=== PATIENT | female | born 1940 | race American Indian/Alaskan Native ===

== ENCOUNTER 2017-11-05 23:33 | Emergency (ER) | payer MEDICARE ==
[2017-11-06] MEDS ORDERED: NORMODYNE IV ONE (01:10)
--- NOTE | 2017-11-06 01:15 | Emergency Department Report ---
ED General Adult HPI - General Chief complaint: High BP Stated complaint: HIGH BLOOD PRESSURE Time Seen by Provider: 11/06/17 01:09 Source: patient Mode of arrival: Ambulatory Limitations: No Limitations - History of Present Illness Initial comments: 77-year-old woman presents with complaint of elevated blood pressure, with long- standing history of hypertension, with generally good control with blood pressure typically in the 130/80 range. Patient reports that she ate at an [place] restaurant earlier in the evening, and believes that there was a very salty and spicy dish that she ate that caused her blood pressure to go up, and that she found that it was over 200 mm systolic after she got home earlier in the evening. 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 She has no active complaints, but did report that earlier after the meal she felt lightheaded, woozy in the head, and thought this was related to her blood pressure, which she then took, and found to be quite high, which was concerning to her. She has no focal neurologic symptoms, no weakness, no unsteadiness, no headache, no chest pain, no shortness of breath, no nausea or vomiting, no back pain. She has not had any falls or trauma, and she has no other systemic complaints. Severity scale (0 -10): 0 - Related Data Previous Rx's Medication Instructions Recorded Last Taken Type Promethazine /Codeine 5 ml PO Q6H PRN #90 ml 05/03/13 Unknown Rx [Phenergan/Codeine 6.25-10 mg/5 ml] predniSONE [Deltasone] 50 mg PO QDAY #4 tab 05/03/13 Unknown Rx Levofloxacin [Levaquin] 750 mg PO QDAY #14 tablet 10/17/13 Unknown Rx Sulfamethoxazole/Trimethoprim 1 each PO BID #28 tablet 10/17/13 Unknown Rx [Bactrim Ds] Ibuprofen [Motrin 600 MG tab] 600 mg PO Q8H PRN #30 tablet 05/16/15 Unknown Rx Tobramycin 0.3% [Tobrex] 1 drop OP Q4HR #1 bottle 05/16/15 Unknown Rx Allergies Allergy/AdvReac Type Severity Reaction Status Date / Time No Known Allergies Allergy Verified 11/05/17 23:49 ED Review of Systems ROS: Stated complaint: HIGH BLOOD PRESSURE Other details as noted in HPI Constitutional: denies: chills, fever Eyes: vision change (blurryblurry). denies: eye pain ENT: denies: throat pain Respiratory: denies: cough, shortness of breath, SOB with exertion, wheezing Cardiovascular: denies: chest pain, palpitations, edema, syncope Endocrine: no symptoms reported Gastrointestinal: denies: abdominal pain, nausea, diarrhea Genitourinary: denies: urgency, dysuria, discharge Musculoskeletal: denies: back pain, joint swelling, arthralgia Skin: denies: rash, lesions Neurological: denies: headache, weakness, paresthesias Psychiatric: denies: anxiety, depression Hematological/Lymphatic: denies: easy bleeding, easy bruising ED Past Medical Hx - Past Medical History Hx Hypertension: Yes Hx Arthritis: Yes - Surgical History Past Surgical History?: Yes Hx Cholecystectomy: Yes (2002) Additional Surgical History: hysterectomy - Social History Smoking Status: Never Smoker Substance Use Type: None - Medications Home Medications: Home Medications Medication Instructions Recorded Confirmed Last Taken Type Promethazine /Codeine 5 ml PO Q6H PRN #90 ml 05/03/13 Unknown Rx [Phenergan/Codeine 6.25-10 mg/5 ml] predniSONE [Deltasone] 50 mg PO QDAY #4 tab 05/03/13 Unknown Rx Levofloxacin [Levaquin] 750 mg PO QDAY #14 tablet 10/17/13 Unknown Rx Sulfamethoxazole/Trimethoprim 1 each PO BID #28 tablet 10/17/13 Unknown Rx [Bactrim Ds] Ibuprofen [Motrin 600 MG tab] 600 mg PO Q8H PRN #30 tablet 05/16/15 Unknown Rx Tobramycin 0.3% [Tobrex] 1 drop OP Q4HR #1 bottle 05/16/15 Unknown Rx ED Physical Exam - General Limitations: No Limitations General appearance: alert, in no apparent distress - Eye Eye exam: Present: normal appearance, PERRL, EOMI - ENT ENT exam: Present: normal exam, mucous membranes moist - Neck Neck exam: Present: normal inspection, full ROM. Absent: tenderness - Respiratory Respiratory exam: Present: normal lung sounds bilaterally. Absent: chest wall tenderness - Cardiovascular Cardiovascular Exam: Present: regular rate - GI/Abdominal GI/Abdominal exam: Present: soft. Absent: tenderness, guarding, rebound - Rectal Rectal exam: Present: deferred - Extremities Exam Extremities exam: Present: normal inspection, full ROM. Absent: pedal edema - Back Exam Back exam: Absent: CVA tenderness (R), CVA tenderness (L) - Neurological Exam Neurological exam: Present: alert, oriented X3, CN II-XII intact. Absent: motor sensory deficit - Psychiatric Psychiatric exam: Present: normal affect, normal mood - Skin Skin exam: Present: warm, dry, intact ED Course Vital Signs 11/05/17 11/05/17 11/06/17 23:31 23:49 00:08 Temperature 36.6 C 36.6 C Pulse Rate 61 63 Respiratory 18 18 Rate Blood Pressure 221/103 221/103 Blood Pressure [Right] O2 Sat by Pulse 96 98 98 Oximetry 11/06/17 11/06/17 11/06/17 00:16 01:00 01:15 Temperature 36.2 C L Pulse Rate 66 Respiratory 16 Rate Blood Pressure 215/124 208/108 Blood Pressure 225/96 [Right] O2 Sat by Pulse 97 99 96 Oximetry 11/06/17 01:46 Temperature Pulse Rate 64 Respiratory Rate Blood Pressure 179/84 Blood Pressure [Right] O2 Sat by Pulse Oximetry - Reevaluation(s) Reevaluation #1: 11/06/17 01:32 Blood pressure on recheck is 206/103, patient is asymptomatic. Reevaluation #2: 11/06/17 01:54 BP 178/89 on recheck, patient remains asymptomatic, was feeling better seeing blood pressure decreased. ED Medical Decision Making - Lab Data Result diagrams: 11/06/17 01:18 11/06/17 01:18 - Medical Decision Making Patient has no elevated blood pressure, particularly given that under good control is normally 130/80. This is likely due to dietary indiscretion, patient reports that she is so sensitive. However, even after reassuring patient that a single blood pressure elevation by itself is not a serious concern, but that long-term stable blood pressure control is the primary goal of antihypertensive therapy, patient still is uncomfortable unless she can get an immediate treatment and some acute lowering of blood pressure. We have treated her with a single dose of hydralazine as well as a single dose of furosemide, which should give her fairly gentle diuresis, as well as blood pressure lowering, and combined with rest tonight, should bring her back towards a more normal range in the morning. She should have follow-up with her physician if her blood pressure remains elevated. Critical Care Time: No Critical care attestation.: If time is entered above; I have spent that time in minutes in the direct care of this critically ill patient, excluding procedure time. ED Disposition Clinical Impression: Asymptomatic hypertensive urgency Disposition: DC-01 TO HOME OR SELFCARE Is pt being admited?: No Does the pt Need Aspirin: No Condition: Stable Instructions: Chronic Hypertension (ED) Additional Instructions: We've given you medication in the emergency department to lower your blood pressure tonight. Rest tonight as normal, and resume your regular blood pressure medicine regimen as before in the morning. Have recheck with your doctor in the coming week if you blood pressure remains difficult to control despite taking your regular medications. Referrals: RORY WHEELER MD [Primary Care Provider] - 3-5 Days Time of Disposition: 01:54
[2017-11-06 01:27] LABS: Hematocrit 42.7 % (30.3-42.9); Hemoglobin 14.1 gm/dl (10.1-14.3); Mean Corpuscular HGB Conc 33 % (30-34); Mean Corpuscular Hemoglobin 26 pg (28-32); Mean Corpuscular Volume 79 fl (79-97); Platelet Count 172 K/mm3 (140-440); Red Cell Distribution Width 15.8 % (13.2-15.2)
[2017-11-06] MEDS ORDERED: APRESOLINE IV ONE (01:31)
[2017-11-06] MEDS ORDERED: LASIX ONE (01:33)
[2017-11-06] MEDS ORDERED: LASIX IV ONE (01:35)
[2017-11-06 01:43] LABS: BUN/Creatinine Ratio 19; Blood Urea Nitrogen 13 mg/dL (7-17); Calcium 9.7 mg/dL (8.4-10.2); Hemolysis Index 6
[2017-11-06 02:07] VITALS: BP 161/77
== END 2017-11-06 02:07 | disposition home or self-care (01) ==
LOC: ED 23:33
DX: I10 Essential (primary) hypertension (principal); Z90.49 Acquired absence of other specified parts of digestive tract; Z90.710 Acquired absence of both cervix and uterus
CPT/HCPCS: 36415; 80048; 85027; 96374; 99283; J0360; J1940

== ENCOUNTER 2018-05-26 00:24 | Emergency (ER) | payer MEDICARE ==
--- NOTE | 2018-05-26 02:55 | Emergency Department Report ---
ED General Adult HPI - General Chief complaint: High BP Stated complaint: HYPERTENSION Time Seen by Provider: 05/26/18 01:53 Source: patient, old records reviewed Mode of arrival: Ambulatory Limitations: No Limitations - History of Present Illness Initial comments: 78-year-old female past medical history of hypertension and arthritis presents to the hospital complaining of elevated blood pressure. Her BP at home is 235/110. Patient reports that she is out of her clonidine just today and she ran out of her clonidine today. She typically takes clonidine 0.3 mg 3 times a day. Patient is no longer on lisinopril but took a dose to help with her blood pressure. She is also on Lasix, potassium chloride, amlodipine, and aspirin daily. Patient states she had some mild neck pain and she was rushing and a little anxious and had a little chest pain. All symptoms have resolved at this time she is asymptomatic and only requesting a refill in her medication. - Related Data Previous Rx's Medication Instructions Recorded Last Taken Type Promethazine /Codeine 5 ml PO Q6H PRN #90 ml 05/03/13 Unknown Rx [Phenergan/Codeine 6.25-10 mg/5 ml] predniSONE [Deltasone] 50 mg PO QDAY #4 tab 05/03/13 Unknown Rx Sulfamethoxazole/Trimethoprim 1 each PO BID #28 tablet 10/17/13 Unknown Rx [Bactrim Ds] levoFLOXacin [Levaquin] 750 mg PO QDAY #14 tablet 10/17/13 Unknown Rx Ibuprofen [Motrin 600 MG tab] 600 mg PO Q8H PRN #30 tablet 05/16/15 Unknown Rx Tobramycin 0.3% [Tobrex] 1 drop OP Q4HR #1 bottle 05/16/15 Unknown Rx Clonidine HCl [Catapres] 0.3 mg PO TID #90 tablet 05/26/18 Unknown Rx Allergies Allergy/AdvReac Type Severity Reaction Status Date / Time No Known Allergies Allergy Verified 11/05/17 23:49 ED Review of Systems ROS: Stated complaint: HYPERTENSION Other details as noted in HPI Comment: All other systems reviewed and negative ED Past Medical Hx - Past Medical History Previous Medical History?: Yes Hx Hypertension: Yes Hx Arthritis: Yes - Surgical History Past Surgical History?: Yes Hx Cholecystectomy: Yes (2002) Additional Surgical History: hysterectomy - Social History Smoking Status: Never Smoker Substance Use Type: None - Medications Home Medications: Home Medications Medication Instructions Recorded Confirmed Last Taken Type Promethazine /Codeine 5 ml PO Q6H PRN #90 ml 05/03/13 Unknown Rx [Phenergan/Codeine 6.25-10 mg/5 ml] predniSONE [Deltasone] 50 mg PO QDAY #4 tab 05/03/13 Unknown Rx Sulfamethoxazole/Trimethoprim 1 each PO BID #28 tablet 10/17/13 Unknown Rx [Bactrim Ds] levoFLOXacin [Levaquin] 750 mg PO QDAY #14 tablet 10/17/13 Unknown Rx Ibuprofen [Motrin 600 MG tab] 600 mg PO Q8H PRN #30 tablet 05/16/15 Unknown Rx Tobramycin 0.3% [Tobrex] 1 drop OP Q4HR #1 bottle 05/16/15 Unknown Rx Clonidine HCl [Catapres] 0.3 mg PO TID #90 tablet 05/26/18 Unknown Rx ED Physical Exam - General Limitations: No Limitations - Other Other exam information: General: No limitations, patient is alert in no acute distress Head exam: Atraumatic, normocephalic Eyes exam: Normal appearance ENT: Moist mucous membrane Neck exam: Normal inspection, full range of motion, no meningismus nontender Respiratory exam: Clear to auscultation bilateral, no wheezes, rales, crackles Cardiovascular: Normal rate and rhythm, normal heart sounds Abdomen: Soft, nondistended, and nontender, with normal bowel sounds, no rebound, or guarding Extremity: Full range of motion normal inspection no deformity, no edema Back: Normal Inspection, full range of motion, no tenderness Neurologic: Alert, oriented x3, cranial nerves intact, no motor or sensory deficit Psychiatric: normal affect, normal mood Skin: Warm, dry, intact ED Course Vital Signs 05/26/18 05/26/18 00:46 01:55 Temperature 97.7 F 97.9 F Pulse Rate 66 70 Respiratory 20 18 Rate Blood Pressure 154/74 Blood Pressure 172/77 [Left] O2 Sat by Pulse 96 98 Oximetry ED Medical Decision Making - EKG Data -: EKG Interpreted by Mi EKG shows normal: sinus rhythm, axis (qrs -22), QRS complexes (qrsd 93), ST-T waves (no stemi) Rate: normal (66) - EKG Data When compared to previous EKG there are: previous EKG unavailable - Medical Decision Making The patient complained of chest pain prior to arrival. EKG does not show ST elevation MT. BP also improved upon arrival compared to home value. She is asymptomatic. Patient declines any additional workup including lab work because she just wants a prescription and to be discharged home. - Differential Diagnosis hypertensive emergency, hypertensive urgency, noncompliance Critical Care Time: No Critical care attestation.: If time is entered above; I have spent that time in minutes in the direct care of this critically ill patient, excluding procedure time. ED Disposition Clinical Impression: Uncontrolled hypertension, Noncompliance with medication regimen Disposition: TO HOME OR SELFCARE Is pt being admited?: No Does the pt Need Aspirin: No Condition: Stable Instructions: Hypertension (ED) Additional Instructions: Take the medication as prescribed. Follow up with your doctor. Return if symptoms worsen as indicated by your discharge instructions Prescriptions: Clonidine HCl [Catapres] 0.3 mg PO TID #90 tablet Referrals: your, pmd [Other] - 3-5 Days Time of Disposition: 02:54
[2018-05-26 03:08] VITALS: BP 151/70
== END 2018-05-26 03:09 | disposition home or self-care (01) ==
LOC: ED 00:24
DX: I10 Essential (primary) hypertension (principal); M54.2 Cervicalgia; Z91.14 Patient's other noncompliance with medication regimen; M19.90 Unspecified osteoarthritis, unspecified site; Z90.49 Acquired absence of other specified parts of digestive tract; Z90.710 Acquired absence of both cervix and uterus
CPT/HCPCS: 93005; 93010; 99282

== ENCOUNTER 2018-12-26 23:59 | Emergency (ER) | payer MEDICARE ==
[2018-12-27] MEDS ORDERED: APRESOLINE PO ONE (00:54)
[2018-12-27] MEDS ORDERED: VASOTEC IV ONE (01:11)
[2018-12-27 01:29] LABS: Basophils # (Auto) 0.1 K/mm3 (0.0-0.1); Basophils % (Auto) 0.8 % (0.0-1.8); Eosinophils # (Auto) 0.1 K/mm3 (0.0-0.4); Eosinophils % (Auto) 1.8 % (0.0-4.3); Hemoglobin 14.7 gm/dl (10.1-14.3); Lymphocytes # (Auto) 2.4 K/mm3 (1.2-5.4); Lymphocytes % (Auto) 29.7 % (13.4-35.0); Mean Corpuscular HGB Conc 33 % (30-34); Mean Corpuscular Volume 81 fl (79-97); Monocytes # (Auto) 0.5 K/mm3 (0.0-0.8); Monocytes % (Auto) 6.5 % (0.0-7.3); Platelet Count 156 K/mm3 (140-440); Red Blood Count 5.42 M/mm3 (3.65-5.03); Red Cell Distribution Width 15.8 % (13.2-15.2)
[2018-12-27 01:52] LABS: BUN/Creatinine Ratio 21; Blood Urea Nitrogen 15 mg/dL (7-17); Calcium 10.3 mg/dL (8.4-10.2); Hemolysis Index 138
--- NOTE | 2018-12-27 01:55 | Cat Scan Report ---
CT head/brain wo con INDICATION / CLINICAL INFORMATION: High blood pressure with headache and dizziness. TECHNIQUE: All CT scans at this location are performed using CT dose reduction for ALARA by means of automated e xposure control. COMPARISON: None available. FINDINGS: There is mild generalized cerebral atrophy. No focal lesion or mass effect is seen. There is no evide nce of intracranial hemorrhage or major vessel occlusion. The calvarium is intact. The visualized par anasal sinuses and mastoid air cells are clear. IMPRESSION: No acute abnormality. Signer Name: Adan Tanner MD Signed: 12/27/2018 1:50 AM Workstation Name: [id number]
--- NOTE | 2018-12-27 02:09 | Emergency Department Report ---
ED General Adult HPI - General Chief complaint: High BP Stated complaint: HTN/UTI Time Seen by Provider: 12/27/18 00:54 Source: patient Mode of arrival: Ambulatory Limitations: No Limitations - History of Present Illness Initial comments: patient brought to er with dizziness, bp 200s/110s since yesterday at home. Mild headache, has been compliant with bp meds. no chest pain or sob. -: Gradual Location: head Severity scale (0 -10): 0 Quality: aching - Related Data Previous Rx's Medication Instructions Recorded Last Taken Type Promethazine /Codeine 5 ml PO Q6H PRN #90 ml 05/03/13 Unknown Rx [Phenergan/Codeine 6.25-10 mg/5 ml] predniSONE [Deltasone] 50 mg PO QDAY #4 tab 05/03/13 Unknown Rx Sulfamethoxazole/Trimethoprim 1 each PO BID #28 tablet 10/17/13 Unknown Rx [Bactrim Ds] levoFLOXacin [Levaquin] 750 mg PO QDAY #14 tablet 10/17/13 Unknown Rx Ibuprofen [Motrin 600 MG tab] 600 mg PO Q8H PRN #30 tablet 05/16/15 Unknown Rx Tobramycin 0.3% [Tobrex] 1 drop OP Q4HR #1 bottle 05/16/15 Unknown Rx Clonidine HCl [Catapres] 0.3 mg PO TID #90 tablet 05/26/18 Unknown Rx Allergies Allergy/AdvReac Type Severity Reaction Status Date / Time No Known Allergies Allergy Verified 11/05/17 23:49 ED Review of Systems ROS: Stated complaint: HTN/UTI Other details as noted in HPI Comment: All other systems reviewed and negative Constitutional: denies: chills Eyes: denies: eye pain ENT: denies: ear pain, throat pain Respiratory: denies: cough Cardiovascular: denies: chest pain, palpitations, dyspnea on exertion Gastrointestinal: denies: abdominal pain, nausea, vomiting Neurological: headache. denies: weakness, numbness, paresthesias, confusion ED Past Medical Hx - Past Medical History Previous Medical History?: Yes Hx Hypertension: Yes Hx Arthritis: Yes - Surgical History Past Surgical History?: Yes Hx Cholecystectomy: Yes (2002) Additional Surgical History: hysterectomy - Social History Smoking Status: Never Smoker Substance Use Type: None - Medications Home Medications: Home Medications Medication Instructions Recorded Confirmed Last Taken Type Promethazine /Codeine 5 ml PO Q6H PRN #90 ml 05/03/13 Unknown Rx [Phenergan/Codeine 6.25-10 mg/5 ml] predniSONE [Deltasone] 50 mg PO QDAY #4 tab 05/03/13 Unknown Rx Sulfamethoxazole/Trimethoprim 1 each PO BID #28 tablet 10/17/13 Unknown Rx [Bactrim Ds] levoFLOXacin [Levaquin] 750 mg PO QDAY #14 tablet 10/17/13 Unknown Rx Ibuprofen [Motrin 600 MG tab] 600 mg PO Q8H PRN #30 tablet 05/16/15 Unknown Rx Tobramycin 0.3% [Tobrex] 1 drop OP Q4HR #1 bottle 05/16/15 Unknown Rx Clonidine HCl [Catapres] 0.3 mg PO TID #90 tablet 05/26/18 Unknown Rx ED Physical Exam - General Limitations: No Limitations General appearance: alert, in no apparent distress - Head Head exam: Present: atraumatic, normocephalic - Eye Eye exam: Present: normal appearance, PERRL, EOMI Pupils: Present: normal accommodation - ENT ENT exam: Present: normal exam, normal orophraynx - Neck Neck exam: Present: normal inspection, tenderness - Respiratory Respiratory exam: Present: normal lung sounds bilaterally - Cardiovascular Cardiovascular Exam: Present: regular rate, normal rhythm - GI/Abdominal GI/Abdominal exam: Present: soft, normal bowel sounds - Extremities Exam Extremities exam: Present: normal inspection - Back Exam Back exam: Present: normal inspection - Neurological Exam Neurological exam: Present: alert, oriented X3, CN II-XII intact - Skin Skin exam: Present: warm ED Course Vital Signs 12/27/18 12/27/18 12/27/18 00:07 00:45 00:55 Temperature 97.8 F 97.6 F Pulse Rate 56 L 56 L Respiratory 16 12 12 Rate Blood Pressure Blood Pressure 198/118 213/80 [Right] O2 Sat by Pulse 97 98 98 Oximetry 12/27/18 12/27/18 12/27/18 01:00 02:05 02:35 Temperature Pulse Rate 60 58 L 54 L Respiratory 21 Rate Blood Pressure 211/106 208/86 Blood Pressure 188/90 [Right] O2 Sat by Pulse 97 Oximetry 12/27/18 12/27/18 12/27/18 03:45 04:24 05:10 Temperature Pulse Rate 50 L 50 L 53 L Respiratory 15 14 Rate Blood Pressure 204/88 Blood Pressure 161/75 132/60 [Right] O2 Sat by Pulse 98 96 Oximetry ED Medical Decision Making - Lab Data Result diagrams: 12/27/18 01:01 12/27/18 01:01 - EKG Data -: EKG Interpreted by Me - Radiology Data Radiology results: report reviewed - Medical Decision Making i advised admission but patient refused. Critical care attestation.: If time is entered above; I have spent that time in minutes in the direct care of this critically ill patient, excluding procedure time. ED Disposition Clinical Impression: Hypertension Qualifiers: Hypertension type: essential hypertension Qualified Code(s): I10 - Essential (primary) hypertension Disposition: - TO HOME OR SELFCARE Is pt being admited?: No Does the pt Need Aspirin: No Condition: Stable Instructions: Hypertension (ED) Referrals: CARLITA JIMENEZ MD [Primary Care Provider] - 3-5 Days
[2018-12-27 02:47] LABS: INR 0.92 (0.87-1.13)
[2018-12-27 02:48] LABS: Partial Thromboplastin Time 24.7 Sec. (24.2-36.6)
[2018-12-27] MEDS ORDERED: APRESOLINE IV ONE (03:14)
[2018-12-27 04:42] LABS: Bilirubin,Urine NEG (Negative); Blood,Urine NEG (Negative); Color,Urine Straw (Yellow); Protein,Urine <15 mg/dL mg/dL (Negative); Urobilinogen,Urine < 2.0 mg/dL (<2.0); WBC,Urine < 1.0 /HPF (0.0-6.0)
[2018-12-27 05:14] VITALS: BP 132/60
== END 2018-12-27 05:34 | disposition home or self-care (01) ==
LOC: ED 23:59
DX: I10 Essential (primary) hypertension (principal); M19.90 Unspecified osteoarthritis, unspecified site; Z90.49 Acquired absence of other specified parts of digestive tract; Z90.710 Acquired absence of both cervix and uterus; Z79.1 Long term (current) use of non-steroidal anti-inflammatories (NSAID); Z79.899 Other long term (current) drug therapy
CPT/HCPCS: 36415; 70450; 80048; 81001; 83880; 84484; 85025; 85610; 85730; 93005; 93010; 96374; 96375; 99285; J0360

== ENCOUNTER 2019-06-21 01:33 | Emergency (ER) | payer MEDICARE ==
--- NOTE | 2019-06-21 03:20 | Emergency Department Report ---
ED General Adult HPI - General Chief complaint: High BP Stated complaint: HIGH BP Time Seen by Provider: 06/21/19 02:44 Source: patient, RN notes reviewed, old records reviewed Mode of arrival: Ambulatory Limitations: No Limitations - History of Present Illness Initial comments: During the entire history and physical examination, I am spouter and escorted by nurse Kyara Craig The patient is a pleasant 79-year-old female with a history of chronic hypertension, currently on clonidine, Norvasc, Lasix, potassium and aspirin. She has a known history of chronic hypertension, documented as far back as 2012 at this hospital. She reports compliance with her antihypertensive therapy. She reports that she was out at a fast food restaurant this evening, consumed cayenne pepper which typically increases her blood pressure, and measured her blood pressure to be 210/103. She came to the emergency room to be evaluated for her asymptomatic chronic hypertension. She denies physical pain. She denies all other medical complaints. Hypertension has been intermittent for years, she endorses compliance with her medications, and she denies dietary indiscretions. -: Gradual Consistency: intermittent, other Improves with: other Associated Symptoms: denies other symptoms - Related Data Previous Rx's Medication Instructions Recorded Last Taken Type Promethazine /Codeine 5 ml PO Q6H PRN #90 ml 05/03/13 Unknown Rx [Phenergan/Codeine 6.25-10 mg/5 ml] predniSONE [Deltasone] 50 mg PO QDAY #4 tab 05/03/13 Unknown Rx Sulfamethoxazole/Trimethoprim 1 each PO BID #28 tablet 10/17/13 Unknown Rx [Bactrim Ds] levoFLOXacin [Levaquin] 750 mg PO QDAY #14 tablet 10/17/13 Unknown Rx Ibuprofen [Motrin 600 MG tab] 600 mg PO Q8H PRN #30 tablet 05/16/15 Unknown Rx Tobramycin 0.3% [Tobrex] 1 drop OP Q4HR #1 bottle 05/16/15 Unknown Rx Clonidine HCl [Catapres] 0.3 mg PO TID #90 tablet 05/26/18 Unknown Rx Allergies Allergy/AdvReac Type Severity Reaction Status Date / Time No Known Allergies Allergy Verified 11/05/17 23:49 ED Review of Systems ROS: Stated complaint: HIGH BP Other details as noted in HPI Constitutional: denies: fever Eyes: denies: vision change Respiratory: denies: shortness of breath Cardiovascular: denies: chest pain Gastrointestinal: denies: abdominal pain Genitourinary: denies: dysuria Musculoskeletal: denies: back pain Neurological: denies: weakness Hematological/Lymphatic: denies: easy bleeding ED Past Medical Hx - Past Medical History Previous Medical History?: Yes Hx Hypertension: Yes Hx Arthritis: Yes - Surgical History Past Surgical History?: Yes Hx Cholecystectomy: Yes (2002) Additional Surgical History: hysterectomy - Social History Smoking Status: Never Smoker Substance Use Type: None - Medications Home Medications: Home Medications Medication Instructions Recorded Confirmed Last Taken Type Promethazine /Codeine 5 ml PO Q6H PRN #90 ml 05/03/13 Unknown Rx [Phenergan/Codeine 6.25-10 mg/5 ml] predniSONE [Deltasone] 50 mg PO QDAY #4 tab 05/03/13 Unknown Rx Sulfamethoxazole/Trimethoprim 1 each PO BID #28 tablet 10/17/13 Unknown Rx [Bactrim Ds] levoFLOXacin [Levaquin] 750 mg PO QDAY #14 tablet 10/17/13 Unknown Rx Ibuprofen [Motrin 600 MG tab] 600 mg PO Q8H PRN #30 tablet 05/16/15 Unknown Rx Tobramycin 0.3% [Tobrex] 1 drop OP Q4HR #1 bottle 05/16/15 Unknown Rx Clonidine HCl [Catapres] 0.3 mg PO TID #90 tablet 05/26/18 Unknown Rx ED Physical Exam - General Limitations: No Limitations General appearance: alert, in no apparent distress - Head Head exam: Present: atraumatic, normocephalic - Eye Eye exam: Present: normal appearance, EOMI, other (Visual acuity intact to finger counting, color perception, reading at a close distance). Absent: nystagmus - ENT ENT exam: Present: normal exam, normal orophraynx, mucous membranes moist, normal external ear exam - Neck Neck exam: Present: normal inspection, full ROM. Absent: tenderness, meningismus - Respiratory Respiratory exam: Present: normal lung sounds bilaterally. Absent: respiratory distress, wheezes, rales, rhonchi, stridor, chest wall tenderness - Cardiovascular Cardiovascular Exam: Present: normal rhythm, bradycardia, normal heart sounds. Absent: systolic murmur, diastolic murmur, rubs, gallop - GI/Abdominal GI/Abdominal exam: Present: soft, normal bowel sounds. Absent: distended, tenderness, guarding, rebound, rigid, pulsatile mass - Extremities Exam Extremities exam: Present: normal inspection, full ROM, pedal edema, other (2+ pulses noted in the bilateral upper and lower extremities. There is no palpable cord. negative Homans sign. Muscular compartments are soft. The pelvis is stable.). Absent: calf tenderness - Back Exam Back exam: Present: normal inspection, full ROM. Absent: tenderness, CVA tenderness (R), CVA tenderness (L), paraspinal tenderness, vertebral tenderness - Neurological Exam Neurological exam: Present: alert, normal gait, other (There is no facial droop. The tongue is midline. Extraocular movements are intact bilaterally. There is 5 out of 5 strength in bilateral upper and lower extremities. Sensation is intact to light touch bilateral upper and lower extremities. There is a normal gait.). Absent: motor sensory deficit - Psychiatric Psychiatric exam: Present: normal affect, normal mood - Skin Skin exam: Present: warm, dry, intact, normal color. Absent: rash ED Course Vital Signs 06/20/19 06/20/19 06/21/19 23:19 23:30 01:39 Temperature Pulse Rate 85 86 53 L Respiratory 14 9 L 12 Rate Blood Pressure 128/72 128/72 201/80 O2 Sat by Pulse 99 99 99 Oximetry 06/21/19 06/21/19 06/21/19 03:02 03:15 03:26 Temperature 97.9 F Pulse Rate 52 L Respiratory 13 Rate Blood Pressure 209/94 204/91 O2 Sat by Pulse 98 Oximetry 06/21/19 06/21/19 06/21/19 03:30 03:45 04:00 Temperature Pulse Rate 54 L 55 L 52 L Respiratory 20 12 15 Rate Blood Pressure 204/86 189/84 190/85 O2 Sat by Pulse 97 98 95 Oximetry - Reevaluation(s) Reevaluation #1: 06/21/19 04:04 Blood pressure improved on its own. Urinalysis not consistent with infectious pathology. Resting comfortably and in no acute distress. Vital Signs 06/20/19 06/20/19 06/21/19 23:19 23:30 01:39 Temperature Pulse Rate 85 86 53 L Respiratory 14 9 L 12 Rate Blood Pressure 128/72 128/72 201/80 O2 Sat by Pulse 99 99 99 Oximetry 06/21/19 06/21/19 06/21/19 03:02 03:15 03:26 Temperature 97.9 F Pulse Rate 52 L Respiratory 13 Rate Blood Pressure 209/94 204/91 O2 Sat by Pulse 98 Oximetry 06/21/19 06/21/19 03:30 03:45 Temperature Pulse Rate 54 L 55 L Respiratory 20 12 Rate Blood Pressure 204/86 189/84 O2 Sat by Pulse 97 98 Oximetry Lab Results 06/21/19 Range/Units 03:23 Urine Color Colorless (Yellow) Urine Turbidity Clear (Clear) Urine pH 7.0 (5.0-7.0) Ur Specific [place] 1.003 (1.003-1.030) Urine Protein <15 mg/dl (Negative) mg/dL Urine Glucose (UA) Neg (Negative) mg/dL Urine Ketones Neg (Negative) mg/dL Urine Blood Neg (Negative) Urine Nitrite Neg (Negative) Urine Bilirubin Neg (Negative) Urine Urobilinogen < 2.0 (<2.0) mg/dL Ur Leukocyte Esterase Neg (Negative) Urine WBC (Auto) < 1.0 (0.0-6.0) /HPF Urine RBC (Auto) < 1.0 (0.0-6.0) /HPF ED Medical Decision Making - Lab Data Vital Signs 06/21/19 01:39 Pulse Rate 53 L Respiratory 12 Rate Blood Pressure 201/80 O2 Sat by Pulse 99 Oximetry - Medical Decision Making Differential diagnosis, including but not limited to: Chronic hypertension, general medical evaluation, urinary frequency, urinary tract infection Assessment and plan: 79-year-old female with a primary complaint of chronic painless asymptomatic hypertension, documented to be present since 2012 at this facility. She is afebrile with reassuring vital signs with the exception of chr onic hypertension. She walks with a steady gait. Please reference the [employer] clinical policy and hypertension which is not acutely symptomatic. Reassurance provided to patient, discussed need for medication compliance, diet and lifestyle modifications, and need to follow-up with outpatient primary care doctor. At the end of her initial history and physical, she then endorsed urinary frequency, without dysuria or hematuria. Therefore, urinalysis will be obtained, to evaluate for bacteriuria, and proteinuria. Critical care attestation.: If time is entered above; I have spent that time in minutes in the direct care of this critically ill patient, excluding procedure time. ED Disposition Clinical Impression: Chronic hypertension, Urinary frequency Disposition: [id number] TO HOME OR SELFCARE Is pt being admited?: No Does the pt Need Aspirin: No Condition: Stable Additional Instructions: Rest, avoid heavy lifting, avoid strenuous physical activities. Avoid cons umption of sodium, complex carbohydrates, and heavy and/or spicy foods. Recommend that patient remain compliant with her outpatient blood pressure medications, and follow-up with her primary care doctor within 2 to 3 weeks for follow-up for chronic hypertension. It is important that patient gradually lower blood pressure over over long-term period of time, to decrease lifetime risk of stroke, heart attack, blindness, disability. Please return to the emergency room right away with new, worsened or different symptoms, or symptoms not present on the initial emergency room evaluation. Referrals: EROS KAM MD [Staff Physician] - as needed [facility] [Provider Group] - as needed [facility] [Provider Group] - as needed
[2019-06-21 03:40] LABS: Bilirubin,Urine NEG (Negative); Blood,Urine NEG (Negative); Color,Urine Colorless (Yellow); Protein,Urine <15 mg/dL mg/dL (Negative); RBC,Urine < 1.0 /HPF (0.0-6.0); Urobilinogen,Urine < 2.0 mg/dL (<2.0); WBC,Urine < 1.0 /HPF (0.0-6.0)
[2019-06-21 04:05] VITALS: BP 190/85
== END 2019-06-21 04:45 | disposition home or self-care (01) ==
LOC: ED 01:33
DX: I10 Essential (primary) hypertension (principal); R35.0 Frequency of micturition
CPT/HCPCS: 81001; 99283